=== PATIENT | female | born 1945 | race Caucasian/White ===

== ENCOUNTER → 2018-07-22 | Outpatient (CLI) | payer OTHER ==
[~2018-07-22] MED LIST: ASPIR 8181 MG PO; CO Q-10100 MG PO; LISINOPRIL PO; LOVASTATIN PO; METFORMIN PO; PRILOSEC20 MG PO
--- NOTE | 2018-07-22 12:16 | Diagnostic Imaging Report ---
EXAMINATION: CT of the chest without contrast TECHNIQUE: Spiral CT images of the chest were performed without intravenous contrast per referring physician request. Coronal and sagittal reformatted images were available for review. COMPARISON: CT chest with contrast 08/30/2016 CLINICAL HISTORY:Pulmonary nodule DISCUSSION: Lungs: Previously described 2 mm right middle lobe pulmonary nodule is unchanged (series 3 image 64). No new or suspicious pulmonary nodules otherwise. Unchanged linear scar or atelectasis in the inferior lingula and right lung apex. No airspace consolidation, bronchiectasis, or gross fibrotic change. Airways: Trachea, mainstem bronchi, and central lobar and segmental bronchi are patent. Small diverticulum at the right-sided junction of the cartilaginous and membranous portions of the trachea is unchanged. Pleura: <There is no evidence of pleural effusion or pneumothorax.> Heart and mediastinum: Visualized portions of the thyroid gland are unremarkable. There is atherosclerotic calcification of the aortic arch, great vessel origins, and [place] coronary arteries. No ectasia or aneurysmal dilatation of the thoracic aorta. Pulmonary outflow tract is of normal caliber. No pericardial effusion. No axillary, hilar, or mediastinal lymphadenopathy. Abdomen: Visualized portions of the liver, spleen, pancreas, and adrenal glands are unremarkable. Status post cholecystectomy. Bones and soft tissues: No focal soft tissue abnormalities. No osseous destructive lesions. Multilevel degenerative disc changes of the thoracic spine. Age indeterminate though likely acute-subacute mild anterior compression deformity of T9 without fragment retropulsion into the spinal canal. IMPRESSION: Right middle lobe 0.2 cm pulmonary nodule is unchanged relative to 08/30/2016. Mild anterior compression deformity of T9 is new relative to 08/30/2016 and likely acute-subacute. Correlate for point tenderness. Atherosclerotic vascular disease. Signed by: Dr. Kulwant Weber M.D. on 07/22/2018 12:13 PM
== END ==
LOC: CT 10:32
PROVIDERS: ATTEND Internal Medicine Critical Care Medicine
DX: R91.1 Solitary pulmonary nodule (principal)
CPT/HCPCS: 71250

== ENCOUNTER 2024-04-29 05:03 | Emergency (ER) | payer MEDICARE, OTHER ==
[~2024-04-29] VITALS: Ht 160 cm; Wt 70.3 kg
[2024-04-29 05:05] VITALS: TEMP 98.6
[2024-04-29] MEDS ORDERED: LISINOPRIL-HCT1 EAC1 PEG (05:34)
[2024-04-29 05:47] VITALS: BP 186/77
[2024-04-29] MEDS: LISINOPRIL 20 MG TAB PO ONE (05:47)
[2024-04-29] MEDS: HYDROCHLOROTHIAZIDE 25 MG TAB PO ONE (05:47)
[2024-04-29 06:00] VITALS: PULSE 62; RESP 17; O2SAT 99
== END 2024-04-29 06:09 | disposition home or self-care (01) ==
LOC: ER 05:34
DX: I10 Essential (primary) hypertension (principal)
CPT/HCPCS: 93005; 99283